=== PATIENT | male | born 1980 | race Caucasian/White ===

== ENCOUNTER 2021-09-02 10:22 | Emergency (ER) | payer OTHER, BC ==
[~2021-09-02] VITALS: Ht 182.9 cm; Wt 145.5 kg
[2021-09-02 10:40] VITALS: TEMP 98.7
[2021-09-02 12:44] VITALS: BP 180/118; PULSE 80
== END 2021-09-02 12:45 | disposition home or self-care (01) ==
LOC: COL.ER 10:22
DX: S09.90XA Unspecified injury of head, initial encounter (principal); S89.91XA Unspecified injury of right lower leg, initial encounter; S00.93XA Contusion of unspecified part of head, initial encounter; Z87.891 Personal history of nicotine dependence; Z28.310 Unvaccinated for COVID-19; W11.XXXA Fall on and from ladder, initial encounter
CPT/HCPCS: J2270; J2405; L1846

== ENCOUNTER 2021-09-09 09:28 | Outpatient (RCR) | payer OTHER | END 2021-09-22 | disposition home or self-care (01) | LOC: WSOH | DX: F07.81 Postconcussional syndrome (principal); S46.012A Strain of muscle(s) and tendon(s) of the rotator cuff of left shoulder, initial encounter; S80.01XA Contusion of right knee, initial encounter; M79.661 Pain in right lower leg; Y99.0 Civilian activity done for income or pay ==

== ENCOUNTER 2021-10-24 15:28 | Outpatient (RCR) | payer OTHER ==
[2021-11-30] MEDS ORDERED: ALEVE 220MG220 MG PO (08:29)
== END 2021-11-23 | disposition home or self-care (01) ==
LOC: WSOH
DX: S46.012D Strain of muscle(s) and tendon(s) of the rotator cuff of left shoulder, subsequent encounter (principal); I82.451 Acute embolism and thrombosis of right peroneal vein; Y99.0 Civilian activity done for income or pay